=== PATIENT | female | born 1960 | race Asian ===

== ENCOUNTER 2016-09-22 08:54 | Emergency (ER) | payer BC ==
[~2016-09-22] VITALS: Ht 162.6 cm; Wt 91.6 kg
[2016-09-22 09:05] VITALS: TEMP 98.4
[2016-09-22] MEDS ORDERED: AZOR1 TA1 PO (09:16)
[2016-09-22 11:23] VITALS: BP 170/90
== END 2016-09-22 11:23 | disposition home or self-care (01) ==
LOC: ED 08:54
DX: J06.9 Acute upper respiratory infection, unspecified (principal); I10 Essential (primary) hypertension
CPT/HCPCS: 99282

== ENCOUNTER 2018-08-25 19:48 | Observation (INO) | payer BC ==
[~2018-08-25] VITALS: Ht 162.6 cm; Wt 94.6 kg
[2018-08-25] VITALS (7 sets, daily range): BP systolic 124–134; BP diastolic 76–84; TEMP 97–97.2
[~2018-08-25 19:48] MED LIST: AZOR1 TA1 PO
[2018-08-25 20:20] LABS: PLATELET COUNT 267 K/uL (152-353)
[2018-08-25 21:30] LABS: POTASSIUM 3.7 mmol/L (3.6-5.2); SODIUM 133 mmol/L (136-145)
[2018-08-25] MEDS ORDERED: BENICAR40 MG PO (22:10)
[2018-08-25] MEDS ORDERED: METFORMIN ER1000 MG PO (22:10)
[2018-08-25] MEDS ORDERED: LORA10TA3 PO (22:11)
[2018-08-26] VITALS (7 sets, daily range): BP systolic 114–149; BP diastolic 66–85; TEMP 97.8–99.3; Ht 162.6 cm; Wt 94.6 kg
[2018-08-26 10:24] LABS: POTASSIUM 3.3 mmol/L (3.6-5.2)
[2018-08-27 04:16] VITALS: BP 140/76; TEMP 99.1
[2018-08-27 05:29] LABS: PLATELET COUNT 233 K/uL (152-353)
[2018-08-27 05:51] LABS: POTASSIUM 4.1 mmol/L (3.6-5.2)
[2018-08-27 08:00] VITALS: BP 132/66; TEMP 98.7
[2018-08-27] MEDS ORDERED: COATED ASPIRIN325 MG PO (09:58)
[2018-08-27] MEDS ORDERED: LEVO0.0529 PO (10:00)
[2018-08-27] MEDS ORDERED: ATOR20TA2 PO (10:00)
[2018-08-27] MEDS ORDERED: LOSA50TA PO (10:16)
[2018-08-27] MEDS ORDERED: METO-837 PO (10:16)
[2018-08-27 12:00] VITALS: BP 136/77; TEMP 98.6
== END 2018-08-27 11:30 | disposition home or self-care (01) ==
LOC: ED 19:48 → MED/SURG 21:45
PROVIDERS: Family Medicine; ADMIT Family Medicine
DX: R07.89 Other chest pain (principal); R55 Syncope and collapse; R42 Dizziness and giddiness; R20.0 Anesthesia of skin; E78.49 Other hyperlipidemia; E03.8 Other specified hypothyroidism; E66.01 Morbid (severe) obesity due to excess calories; Z68.35 Body mass index [BMI] 35.0-35.9, adult; E11.69 Type 2 diabetes mellitus with other specified complication; I10 Essential (primary) hypertension
CPT/HCPCS: 36415; 80048; 80053; 80061; 82550; 82553; 82948; 83880; 84443; 84484; 85027; 85379; 93005; 96360; 96365; 96366; 96372; 99220; 99284; G0378; J1650; J1815

== ENCOUNTER 2018-10-10 08:25 | Outpatient (CLI) | payer BC ==
[~2018-10-10 08:25] MED LIST changes: +ATOR20TA2 PO; +BENICAR40 MG PO; +COATED ASPIRIN325 MG PO; +LEVO0.0529 PO; +LORA10TA3 PO; +LOSA50TA PO; +METFORMIN ER1000 MG PO; +METO-837 PO
== END 2018-10-10 22:04 | disposition home or self-care (01) ==
LOC: RESP 08:25
DX: R07.89 Other chest pain (principal)
CPT/HCPCS: 36415; 82565; 84520; 93225; 93306; A9576